=== PATIENT | male | born 1990 | race Two or more races ===

== ENCOUNTER 2023-01-19 00:26 | Emergency (ER) | payer MEDICAID, OTHER ==
[~2023-01-19] VITALS: Ht 188 cm; Wt 80.0 kg
[2023-01-19] MEDS ORDERED: IOHEXOL 300 MG/ML 100ML BOTTLE IJ ONE (00:45)
[2023-01-19] MEDS ORDERED: HYDROmorphone HCL 2 MG/ML VL/or syr IV ONE ×2 (00:45→02:15)
[2023-01-19] MEDS ORDERED: ONDANSETRON HCL 4 MG/2 ML VIAL IV ONE (00:45)
[2023-01-19 00:53] LABS: Basophils # (auto) 0.1 10 ^3/uL (0-0.2); Basophils % (auto) 0.6 % (0.0-2.0); Eosinophils # (auto) 0.1 10 ^3/uL (0-0.8); Eosinophils % (auto) 0.9 % (0.0-7.0); Hematocrit 43.7 % (41.0-53.0); Hemoglobin 15.1 g/dL (13.5-17.5); Mean Corpuscular Hemoglobin 32.6 pg (28.0-32.0); Mean Corpuscular Hgb Conc. 34.6 g/dL (32.0-36.0); Mean Corpuscular Volume 94.4 fL (80.0-100.0); Monocytes # (auto) 0.7 10 ^3/uL (0-1.3); Monocytes % (auto) 6.8 % (0.0-12.0); Neutrophils # (auto) 7.1 10 ^3/uL (1.6-8.6); Neutrophils % (auto) 64.7 % (37.0-80.0); Red Blood Cells 4.63 10^6/uL (4.5-5.90); White Blood Cell 10.9 10^3/uL (4.4-10.8)
[2023-01-19 01:07] LABS: Alanine Aminotransferase 13 U/L (7-40); Albumin 4.2 g/dL (3.2-4.8); Alkaline Phosphatase 77 U/L (46-116); Anion Gap 7.4 (5-15); Aspartate Aminotransferase 14 U/L (13-40); BUN/Creatinine Ratio 6.8 (10.0-20.0); Bilirubin, Total 0.8 mg/dL (0.2-1.0); Blood Alcohol < 3.0 mg/dL (<10); Blood Urea Nitrogen 7 mg/dL (9-23); Calcium 9.4 mg/dL (8.7-10.4); Carbon Dioxide 22.6 mmol/L (20-30); Chloride 107 mmol/L (98-107); Glucose 131 mg/dL (74-106); Potassium 3.1 mmol/L (3.5-5.1); Sodium 137 mmol/L (136-145); Total Protein 7.2 g/dL (5.7-8.2)
[2023-01-19 01:09] LABS: INR 1.07 (0.9-1.15); Partial Thromboplastin Time 25.5 SEC (24.5-34.5); Prothrombin Time 11.2 sec (9.3-11.8)
[2023-01-19 01:15] VITALS: PULSE 68; RESP 15; O2SAT 98
[2023-01-19] MEDS ORDERED: POTASSIUM CHL 20MEQ/100ML 100 ML IV ONE (02:30)
[2023-01-19] MEDS ORDERED: SODIUM CHLORIDE 0.9% 1,000 ML IV ONE (02:30)
[2023-01-19 04:00] VITALS: TEMP 98.4; O2SAT 96
[2023-01-19] MEDS ORDERED: fentaNYL CITRATE 100 MCG/2 ML VL IV ONE (04:00)
[2023-01-19] MEDS ORDERED: ceFAZolin 2 GM/D5W100ml 100 ML IV ONE (04:15)
[2023-01-19] MEDS ORDERED: TETANUS-DIPTH-ACEL PERTUSSIS 0.5ML SYR Tdap IM ONE (04:15)
[2023-01-19] MEDS ORDERED: ceFAZolin 1GM VL ONE (04:26)
[2023-01-19 04:45] VITALS: BP 135/78; PULSE 57; RESP 16
== END 2023-01-19 05:13 | disposition left against medical advice (07) ==
LOC: ER 00:26 → EDBD 00:26 → ER 04:54
DX: S02.85XA Fracture of orbit, unspecified, initial encounter for closed fracture (principal); S61.432A Puncture wound without foreign body of left hand, initial encounter; F12.10 Cannabis abuse, uncomplicated; M54.2 Cervicalgia; Z88.6 Allergy status to analgesic agent; Z79.01 Long term (current) use of anticoagulants; X95.8XXA Assault by other firearm discharge, initial encounter; Y93.89 Activity, other specified; Y92.89 Other specified places as the place of occurrence of the external cause; Y99.8 Other external cause status
CPT/HCPCS: 36415; 70450; 70486; 71250; 72125; 73201; 74176; 80053; 80320; 85025; 85610; 85730; 90471; 90715; 96361; 96365; 96375; 96376; 99285; J0690; J1170; J2405; J3010; J3480; J7030; J7060; Q9967